=== PATIENT | male | born 1970 | race Caucasian/White ===

== ENCOUNTER 2022-11-13 14:30 | Emergency (ER) | payer OTHER, SELFPAY ==
--- NOTE | 2022-11-13 14:37 | ED.SKABFB ---
HPI - Skin/Abscess/Foreign Bdy General Chief complaint: Skin/Abscess/Foreign Body Stated complaint: Rash Time Seen by Provider: 11/13/22 14:33 Source: patient Mode of arrival: ambulatory Limitations: no limitations History of Present Illness HPI narrative: is a 52-year-old male patient presenting to the clinic today with complaints of a rash times 2-3 weeks. He reports he has tried [id number] hydrocortisone, cortisone 10, calamine lotion. States that the rash gets better with the cortisone cream however it comes back. He works an [employer] Related Data Allergies Allergy/AdvReac Type Severity Reaction Status Date / Time NFA Allergy Unknown Uncoded 08/09/02 08:24 Review of Systems Review of Systems: Pertinent positives per HPI. Patient denies any fever, chills, rash, headache, visual changes, dizziness, cough, runny nose, sore throat, shortness of breath, chest pain, palpitations, nausea, vomiting, diarrhea, constipation, abdominal pain, or any urinary issues. PMFSH Comments At the time of my signature, I reviewed and agree with the nursing past medical, surgical, social, and family history. There is no relevant family history pertinent to the patient complaint. Exam Narrative: General: Well-developed, well nourished, in no apparent distress Head: Normocephalic, atraumatic. Cardio: Regular rate and rhythm, s1 and s2 normal, no murmur appreciated. Resp: Clear to auscultation bilaterally, no rhonchi, rales, wheezing or rubs. Integumentary: [place], warm, and dry, intact without lesion, red, raised, itchy, blistery appearing rash to bilateral forearms Course Course Emergency Course: Portions of this record may have been created with voice recognition software. Level of Care: Express Care Visit Vital Signs Vital signs: Vital signs reviewed MDM - Skin/Abscess/Foreign Bdy MDM Narrative Medical decision making narrative: At the time of visit patient is resting comfortably on the exam table. I suspect patient has a topic dermatitis to the bilateral forearms. Will send in prescription for Medrol Dosepak and some triamcinolone cream. Supportive measures were discussed with the patient and he voiced understanding discharge instructions agrees to treatment plan. Differential Diagnosis Differential diagnosis: Likely abscess of skin or subcutaneous tissue, urticaria, cellulitis, eczema, insect bites and contact dermatitis Discharge Plan Discharge Clinical Impression: Dermatitis Patient Disposition: Home, Self-Care Condition: Stable Instructions: Antibiotic Form, Dermatitis (ED) Additional Instructions: Apply triamcinolone cream as directed Take Medrol Dosepak as directed Avoid hot showers May apply calamine lotion to rash Avoid scratching and this causes rash to spread May take benadryl 25-50mg every 6 hours as needed for itching. Follow up with your PCP in 3-5 days if symptoms persist or sooner if they worsen Go to the Emergency Room if symptoms worsen- fever, rash spreading with treatment, shortness of breath, tongue swelling, drooling, or chest pain Prescriptions: New triamcinolone acetonide 0.1 % cream 1 applic topical BID 7 Days Qty: 30 0RF methylprednisolone [Medrol (Mumtaz)] 4 mg tablets,dose pack See Rx Instructions .ROUTE .COMPLEX Qty: 21 0RF Rx Instructions: orally per package directions Follow-up/Referrals: PHYSICIAN NOT ON STAFF,NONSTAFF [Primary Care Provider] - Time of Disposition: 14:47 Quality NIHSS Nursing Documentation ED NIHSS nursing documentation: reviewed/agree
[2022-11-13 14:41] VITALS: BP 136/85; PULSE 79; RESP 18; TEMP 36.8; O2SAT 100
== END 2022-11-13 14:51 | disposition home or self-care (01) ==
PROVIDERS: Emergency Provider Nurse Practitioner Family
DX: L30.9 Dermatitis, unspecified (principal)
CPT/HCPCS: 99213; G0463

== ENCOUNTER 2023-01-16 14:36 | Outpatient (CLI) | payer OTHER, SELFPAY ==
[2023-01-16 15:03] LABS: Basophils Absolute Auto 0.1 K/mm3 (0.0-0.1); Basophils Percent Auto 0.6 % (0.2-1.2); Eosinophils Absolute Auto 0.1 K/mm3 (0-0.3); Eosinophils Percent Auto 0.6 % (0-4.4); Hematocrit 45.9 % (42.0-52.0); Hemoglobin 15.5 g/dL (14.0-18.0); Immature Granulocyte Absolute 0.04 K/mm3 (0.00-0.031); Immature Granulocyte Percent A 0.4 % (0-0.5); Lymphocytes Percent Auto 12.4 % (18.3-44.2); Mean Corpuscular HGB Conc 33.8 g/dl (32-36); Mean Corpuscular Hemoglobin 31.3 pg (26-34); Mean Corpuscular Volume 92.5 fl (80-100); Mean Platelet Volume 9.6 fl (7.4-10.4); Monocytes Absolute Auto 0.7 K/mm3 (0.1-0.6); Monocytes Percent Auto 6.5 % (2.6-8.5); Neutrophils Percent Auto 79.5 % (45.5-73.1); Platelet Count Result 371 k/mm3 (150-375); Red Blood Count 4.96 M/mm3 (4.6-6.20); Red Cell Distribution Width 14.2 % (11.5-14.5); White Blood Count 11.3 K/mm3 (4.5-10.0)
[2023-01-16 15:18] LABS: Alanine Aminotransferase 37 U/L (6-50); Albumin Level 4.6 g/dL (3.5-5.1); Alkaline Phosphatase 75 U/L (38-126); Anion Gap 9 mmol/L (8-16); Aspartate Amino Transferase 34 U/L (17-59); Bilirubin,Total 0.6 mg/dL (0.2-1.3); Blood Urea Nitrogen 16 mg/dL (9-20); Calcium 9.1 mg/dL (8.4-10.2); Carbon Dioxide 27 mmol/L (22-30); Chloride 103 mmol/L (98-107); Cholesterol 196 mg/dL (0-200); Estimated Glomerular Filt Rate > 60; Glucose 99 mg/dL (65-110); HDL Direct 51 mg/dL; Potassium 4.3 mmol/L (3.4-5.0); Sodium 139 mmol/L (137-145); Triglycerides 82 mg/dL (<150)
[2023-01-16 15:29] LABS: LDL Cholesterol Direct 120 mg/dL
== END 2023-01-16 14:37 | disposition home or self-care (01) ==
LOC: ANHLAB 14:39
PROVIDERS: PCP Family Medicine; Visit Provider Family Medicine
DX: Z00.00 Encounter for general adult medical examination without abnormal findings (principal)
CPT/HCPCS: 36415; 80053; 80061; 85025

== ENCOUNTER 2024-10-07 18:33 | Emergency (ER) | payer OTHER, SELFPAY ==
--- NOTE | ~2024-10-07 | XR_ITS ---
XR finger 3rd RT min 2V 10/07/2024 19:59 Indication: Finger laceration Procedure: 3 views right third finger Comparison: No prior studies for comparison. 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 No acute fracture or traumatic malalignment. Mild soft tissue swelling with soft tissue laceration ventral to the distal phalanx. No foreign body. Impression: 1: No acute bone or joint abnormality. Reviewed, dictated and finalized at location O. Impression: 1: No acute bone or joint abnormality.
[2024-10-07 18:48] VITALS: BP 143/95; PULSE 100; RESP 19; TEMP 36.6; O2SAT 100
--- NOTE | 2024-10-07 19:42 | ED.WOUNDLAC ---
HPI - Wound/Laceration General Chief Complaint: Wound/Laceration Stated Complaint: wound Time Seen by Provider: 10/07/24 19:20 History of Present Illness HPI narrative: 53-year-old male presents to the emergency department for laceration to his right 3rd finger that occurred prior to arrival. 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 States he was loading a metal cart onto his truck when the cart pinched his right 3rd finger causing a laceration. Patient is reporting laceration to the palmar aspect of his right 3rd distal phalanx. Last Tdap is unknown. Bleeding is controlled. Denies difficulty with range of motion. Related Data Allergies Allergy/AdvReac Type Severity Reaction Status Date / Time No Known Allergies Allergy Verified 10/07/24 18:33 Review of Systems Review of Systems: All systems reviewed & are unremarkable except as noted in HPI and below PMFSH Family History Family History Father Lung cancer metastatic to brain Social History Social History Social History: Single Smoking packs per day: 0 Smoking cigarettes per day: 0.0 Years smoked: 30 Smoking pack-years: 0.00 Smoking status: Current every day smoker Tobacco type: cigarettes Second hand tobacco smoke exposure: No Alcohol intake: never Substance use: never Substance use type: does not use Lack of Transportation: No Lack of Food: Never True Current Housing: I Have Housing Concerned About Future Housing: No Difficulty Paying Gas/Electric Bills: No Difficulty Paying for Meds: No Currently Unemployed: No Education: Don't Know Difficulty w/ Childcare or Family Care: No Living arrangements: with family Additional living arrangements comments: Pt son and mom lives with him. 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 HEAD: Normocephalic, atraumatic. EYES: EOMI. ENT: Nares clear, no rhinorrhea or epistaxis. Mucous membranes moist. NECK: Supple. CHEST: Clear to auscultation. No respiratory distress. HEART: Regular rate and rhythm. No murmur heard. Normal peripheral pulses. EXTREMITIES: Normal range of motion. No edema. SKIN: 4 cm U shaped laceration on the palmar aspect of the right 3rd distal phalanx. Bleeding controlled. No deep structures or foreign bodies visualized. Patient has full flexion and extension of the digit. No nail involvement. Cap refill less than 2. Sensation intact. Fingers with dirt on them NEURO: No focal deficits. Alert and oriented x3 Course Vital Signs Vital signs: Vital Signs Temperature 97.8 F 10/07/24 18:48 Pulse Rate 100 10/07/24 18:48 Respiratory Rate 19 10/07/24 18:48 Blood Pressure 143/95 H 10/07/24 18:48 Pulse Oximetry 100 10/07/24 18:48 Oxygen Delivery Room Air 10/07/24 18:48 Temperature 97.8 F 10/07/24 18:48 Pulse Rate 100 10/07/24 18:48 Respiratory Rate 19 10/07/24 18:48 Blood Pressure 143/95 H 10/07/24 18:48 Pulse Oximetry 100 10/07/24 18:48 Oxygen Delivery Room Air 10/07/24 18:48 Procedures Laceration Laceration 1: Date: 10/07/24 Time: 20:57 Site: upper extremity Side (If applicable): right Size (cm): 4 Description: irregular Depth: simple, single layer Local Anesthetic: lidocaine 1% Amount of anesthesia used (mL): 3 Pre-repair: wound explored, irrigated and irrigated extensively ====== Skin Level ====== Skin layer closed with: nylon Size (cm): 5-0 Number of sutures: 8 Technique: simple, interrupted ====== Subcutaneous Layer ====== ====== Muscle Layer ====== ====== Tendon Layer ====== MDM - Wound/Laceration MDM Narrative Medical decision making narrative: 53-year-old male presents to the emergency department for laceration to his right 3rd digit that occurred prior to arrival. See HPI for further history. Vitals with elevated blood pressure, otherwise unremarkable. Patient is afebrile and nontoxic appearing. Exam is significant for the above. X-ray the finger shows no acute osseous findings. Laceration irrigated extensively with normal saline and closed with 8 sutures as noted above without complications. Tdap updated in the ED. Given patient works for maintenance and his hands were dirty, will start him on antibiotics. Discussed wound care, suture removal in 7 days and strict ED return precautions. Patient is agreeable with the plan verbalized understanding. Discharged in stable condition. Discharge Plan Discharge Clinical Impression: Laceration Patient Disposition: Home Condition: Stable Instructions: Antibiotic Form, Care For Your Stitches (ED), Laceration (ED) Additional Instructions: You had 8 stitches placed today. Please have these removed in 7 days by your primary care, emergency department or urgent care. Please keep your wound clean and dry. Keep it covered while working. Change her bandage twice daily or sooner if saturated. Take antibiotics as directed. Return to the emergency department if you develop surrounding redness, drainage, fever or other concerning symptoms. Patient Language: Lithuanian Prescriptions: New cephalexin 500 mg capsule 500 mg PO Q8H 5 Days Qty: 15 0RF No Action methylprednisolone [Medrol (Mumtaz)] 4 mg tablets,dose pack See Rx Instructions PO PER PKG DIR Qty: 21 0RF Rx Instructions: PO PER PKG DIR triamcinolone acetonide 0.1 % cream 1 applic topical BID Qty: 80 0RF Follow-up/Referrals: Howard Maharaj MD [Primary Care Provider, Family Practice]
[2024-10-07] MEDS: TETANUS,DIPHTHERIA,AC PERTUSSIS ADULT (0.5 ML) BOOSTRIX IM (19:49)
[2024-10-07] MEDS: LIDOCAINE 1% LOCAL INJ 10 ML VIAL INFILTRATE (20:31)
--- NOTE | 2024-10-07 20:31 | PC.NURSE ---
PA at bedside for lac repair
[2024-10-07] MEDS: CEPHALEXIN 500 MG CAPSULE PO (21:18)
[2024-10-07 21:21] VITALS: RESP 18
== END 2024-10-07 21:27 | disposition home or self-care (01) ==
PROVIDERS: Emergency Provider Physician Assistant; PCP Family Medicine
DX: S61.212A Laceration without foreign body of right middle finger without damage to nail, initial encounter (principal); Z23 Encounter for immunization; W23.0XXA Caught, crushed, jammed, or pinched between moving objects, initial encounter
CPT/HCPCS: 12002; 73140; 90471; 90715; 99283; A9270; J2003

== ENCOUNTER 2024-10-17 20:37 | Emergency (ER) | payer OTHER, SELFPAY ==
--- OUTSIDE RECORDS SUMMARY | 2009-04-03 07:45 | XMS_ITS | Continuity of Care Document ---
Author Organization [facility] Address [address] [place] [address] utive [facility] [address] [place] [address] Phone Care Team Providers Care Software Development Coordinator Name Role Phone Elli Hooper Unavailable Unavailable Procedures Procedure Date Office/outpatient Visit, Est Remove Foreign Body From Eye Remove Foreign Body From Eye Advance Directives Directive Yes / No Effective Date File Name No Information Encounters Encounter Description Practice Location Reason(s) For Visit Diagnoses Date Provider Providers Copied on Encounter Office/outpat ient Visit, Est [facility], [id number] [place] [address] [address], [place], [place], [id number], tel:[phone] [facility] No Information 6-201 0 Sandie Calloway. [facility] [place] , [address], [place], [place], [facility], [place]. tel:[phone] [facility], [address] [place] [address] [address], [place], [place], [id number], tel:[phone] [facility] No Information 0-201 0 Randhawa OD Mansoor. [address] , [address], [place], [place], [facility], [place]. tel:[phone] [facility], [address] [place] [address] [address], [place], [place], [id number], tel:[phone] [facility] No Information 7-200 9 Krishnasamy Soto. [facility] [address], [place], [address], [place]. tel:[phone] Referring Provider: Soto penn, [address], [address]. tel:[phone] Family History Family Member Type Diagnosis Age At Onset No Information Payers Payer name Insurance type Covered libertarian ID Authorhalima vincent(s) [employer] [id number] Social History Type Description Quantity Date Captured Comments Sex Male Smoking Status No Information Chief Complaint And Reason For Visit No Information Reason For Referral Reason For Referral No Information History Of Present Illness Encounter Date Complaint History Of Prese nt Illness No Information Functional Status Date Functional Assessmen t No Information Instructions Date Instruction Additional Infor mation No Information Assessments Type Assessment Date No Information Patient Care Teams Name Effective Dates (start - stop) Status Members No Information
--- OUTSIDE RECORDS SUMMARY | 2024-10-17 20:38 | XMS_ITS | Clinical Summary ---
Author Organization [facility] Address [address], [address] [address] Phone Care Team Providers Care Medical Engineer Name Role Phone Melani Gustafson MD Unavailable [phone] Storm Burleson MD Primary Care Provider [phone] Allergies Active Allergy Reactions Criticality Noted Date Comments Poison Aleena Extract Rash,Itching 05/16/2015 Medications ibuprofen (MOTRIN) 200 MG Tablet Take 200 mg by mouth every 8 hours as needed. Active Active Problems Problem Noted Date Diagnosed Date Left inguinal hernia 05/07/2015 Current smoker 05/07/2015 Family History Medical History Relation Name Comments Heart Attack Father Lung Cancer Father Breast Cancer Mother Relation Name Status Comments Father Mother Alive Social History Tobacco Use Types Packs/Day Years Used Date Smoking Tobacco: Every Day Cigarettes 1 30 Smokeless Tobacco: Never Tobacco Cessation:Ready to Q uit: No Alcohol Use Standard Drinks/Week Comments No 0 (1 standard drink = 0.6 oz pur e alcohol) Sex and Gender Information Value Date Recorded Sex Assigned at Not on file Legal Sex Male 9:31 AM CDT Gender Identity Not on file Sexual Orientation Not on file Last Filed Vital Signs Vital Sign Reading Time Taken Comments Blood Pressure 142/98 07/02/2015 10:10 AM CDT Pulse 78 07/02/2015 10:10 AM CDT Temperature 36.5 C (97.7 F) 07/02/2015 10:10 AM CDT Respiratory Rate 16 07/02/2015 10:10 AM CDT Oxygen Saturation 97% 05/23/2015 12:15 PM CDT Inhaled Oxygen Concentration - - Weight 58.8 kg (129 lb 9.6 oz) 07/02/2015 10:10 AM CDT Height 165.1 cm (5' 5) 07/02/2015 10:10 AM CDT Body Mass Index 21.57 07/02/2015 10:10 AM CDT Plan of Treatment Health Maintenance Due Date Last Done Comments Hepatitis C Virus (HCV) Screening 1968 TdaP Immunization 1968 Hepatitis B Immunization (1 of 3 - 19+ 3-dose series) 10/20/1987 Cologuard 2013 Colonoscopy 2013 Colorectal Cancer Screening 2013 Immunochemical Fecal Occult Blood 2013 Pneumococcal Immunization (5 0+ years) (1 of 1 - PCV) 2018 Zoster Immunization (1 of 2) 2018 SARS-COV-2 Immunization (1 - 2023-) 10/18/2023 Influenza Immunization (#1) 2024 Respiratory Syncytial Virus (RSV) Immunization (Adult) (1 - 1-dose 75+ series) 10/20/2043 Human Papillomavirus (HPV) Immunization Aged Out No longer eligible b ased on patient's age to complete this topic Meningococcal Immunization (ACWY) Aged Out No longer eligible based on patient's age to complete this topic Rotavirus Immunization Aged Out No lo nger eligible based on patient's age to complete this topic Medical Devices Implanted Type Area Medical Sales Specialist Device Identifier Shelf Expiration Date Model / Serial / Lot Mesh Left Large 3dmax Light - [id number] Implanted:Qty : 1 on 05/23/2015 by Melani Gustafson MD at [facility] IMPLANT Left: Groin CR BARD / DAVOL 12/14/2019 [id number] / / [id number] Insurance [facility] Care Teams Medical Engineer Relationship Specialty Start Date End Date Storm Burleson MD [address] [place] [id number] PCP - General Family Medicine 05/07/15 Melani Gustafson MD General Surgery 05/02/15
--- OUTSIDE RECORDS SUMMARY | 2024-10-17 20:38 | XMS_ITS | Clinical Summary ---
Author Organization [facility] Address [address] [place] [address] Care Team Providers Care Physical Science Technician Name Role Phone Unavailable Primary Care Provider Unavailabl e Social History Tobacco Use Types Packs/Day Years Used Date Smoking Tobacco: Never Assessed Comments Unknown Sex and Gender Information Value Date Recorded Sex Assigned at Not on file Legal Sex Female 11:26 AM SCRAP PREPARER Gender Identity Not on file Sexual Orientation Not on file Last Filed Vital Signs Vital Sign Reading Time Taken Comments Blood Pressure 135/88 01/05/2023 11:32 AM SCRAP PREPARER Pulse 78 01/05/2023 11:32 AM SCRAP PREPARER Temperature 37 C (98.6 F) 01/05/2023 11:32 AM SCRAP PREPARER Respiratory Rate 18 01/05/2023 11:32 AM SCRAP PREPARER Oxygen Saturation 100% 01/05/2023 11:32 AM SCRAP PREPARER Inhaled Oxygen Concentration - - Weight 53.3 kg (117 lb 8.1 oz) 01/05/2023 11:32 AM SCRAP PREPARER Height 165.1 cm (5' 5) 01/05/2023 11:32 AM SCRAP PREPARER Body Mass Index 19.55 01/05/2023 11:32 AM SCRAP PREPARER Plan of Treatment Health Maintenance Due Date Last Done Comments Cervical Cancer Screening Pa p Smear (Age 30 to 64) Every 3 Years 1968 Colorectal Cancer Screening Colonoscopy (10 Years) 1968 Annual Physical 10/20/1971 Hepatitis C 1986 DTaP, Tdap and Td Vaccines ( 1 - Tdap) 10/20/1987 Hepatitis B Vaccines (1 of 3 - 19+ 3-dose series) 10/20/1987 Cervical Cancer Screening Pa p with HPV Testing (Age 30 to 64) Every 5 Years 1998 Cervical Cancer Screening with HPV 1998 Mammogram Screening 2008 Pneumococcal Vaccine: 50+ Ye ars (1 of 1 - PCV) 2018 Zoster Vaccines (1 of 2) 2018 COVID-19 Vaccine (2023-2 5 season) 2023 Meningococcal B Vaccine Aged Out No l onger eligible based on patient's age to complete this topic Meningococcal Vaccine Aged Out No hi tyra eligible based on patient's age to complete this topic RSV Immunizations Under 20 Months Aged Out No longer eligible based on patient's age to complete this topic
[2024-10-17 20:44] VITALS: BP 154/101; PULSE 77; RESP 18; TEMP 36.3; O2SAT 96
--- NOTE | 2024-10-17 20:55 | ED.GENADULT ---
HPI - General Adult General Chief complaint: Wound/Laceration Stated complaint: suture removal Time Seen by Provider: 10/17/24 20:45 History of Present Illness HPI narrative: Patient is a 53-year-old gentleman presents emergency department chief complaint of wound check. Patient reports he had a laceration to his right middle finger on the 22nd had sutures placed and reports that he came for wound check to see if it was time the sutures to be removed. Patient states that he feels there is an area of still feels weak and feels that he may need some further time with sutures in place Related Data Allergies Allergy/AdvReac Type Severity Reaction Status Date / Time No Known Allergies Allergy Verified 10/07/24 18:33 Review of Systems Review of Systems: A 10 system review of systems was completed on the patient and is negative except for what is stated in the HPI. Nursing and ancillary documentation was reviewed. [facility] Family History Family History Father Lung cancer metastatic to brain Social History Social History Social History: Single Smoking packs per day: 0 Smoking cigarettes per day: 0.0 Years smoked: 30 Smoking pack-years: 0.00 Smoking status: Current every day smoker Tobacco type: cigarettes Second hand tobacco smoke exposure: No Alcohol intake: never Substance use: never Substance use type: does not use Lack of Transportation: No Lack of Food: Never True Current Housing: I Have Housing Concerned About Future Housing: No Difficulty Paying Gas/Electric Bills: No Difficulty Paying for Meds: No Currently Unemployed: No Education: Don't Know Difficulty w/ Childcare or Family Care: No Living arrangements: with family Additional living arrangements comments: Pt son and mom lives with him. 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 HEAD: Normocephalic, atraumatic. EYES: PERRLA and EOMI. ENT: Nares clear, no rhinorrhea or epistaxis. Mucous membranes moist. NECK: Supple. CHEST: Clear to auscultation. No respiratory distress. HEART: Regular rate and rhythm. No murmur heard. Normal peripheral pulses. ABDOMEN: Soft, nontender, nondistended, normal active bowel sounds. EXTREMITIES: Normal range of motion. No edema. SKIN: Warm, dry, no rash. There is a sutured wound present on the right middle finger well approximated no erythema no purulent drainage there to not be complete wound healing on the laceration yet NEURO: No focal deficits. Alert and oriented x3. PSYCH: Normal mood and affect. Course Vital Signs Vital signs: Vital Signs Temperature 36.3 C L 10/17/24 20:44 Pulse Rate 77 10/17/24 20:44 Respiratory Rate 18 10/17/24 20:44 Blood Pressure 154/101 H 10/17/24 20:44 Pulse Oximetry 96 10/17/24 20:44 Oxygen Delivery Room Air 10/17/24 20:44 Temperature 36.3 C L 10/17/24 20:44 Pulse Rate 77 10/17/24 20:44 Respiratory Rate 18 10/17/24 20:44 Blood Pressure 154/101 H 10/17/24 20:44 Pulse Oximetry 96 10/17/24 20:44 Oxygen Delivery Room Air 10/17/24 20:44 Medical Decision Making MDM Narrative Medical decision making narrative: Wound shows no signs of infection but the wound is not completely healed and given this is a high utilization area the body and is exposed to additional stress was discussed with the patient and the decision was made to maintain the sutures for another 2-3 days and have the wound recheck the patient expressed understanding this and will return to the emergency department primary care or urgent care for recheck in 2-3 days Vital Signs Vital Signs: Vital Signs Temperature 36.3 C L 10/17/24 20:44 Pulse Rate 77 10/17/24 20:44 Respiratory Rate 18 10/17/24 20:44 Blood Pressure 154/101 H 10/17/24 20:44 Pulse Oximetry 96 10/17/24 20:44 Oxygen Delivery Room Air 10/17/24 20:44 Temperature 36.3 C L 10/17/24 20:44 Pulse Rate 77 10/17/24 20:44 Respiratory Rate 18 10/17/24 20:44 Blood Pressure 154/101 H 10/17/24 20:44 Pulse Oximetry 96 10/17/24 20:44 Oxygen Delivery Room Air 10/17/24 20:44 Discharge Plan Discharge Clinical Impression: Visit for wound check Patient Disposition: Home Condition: Stable Instructions: Antibiotic Form, Care For Your Stitches (ED) Additional Instructions: Please keep the area clean is recommended follow-up in 2-3 days for another wound check as the sutures do not appear to be ready to be removed Patient Language: Czech Prescriptions: No Action methylprednisolone [Medrol (Mumtaz)] 4 mg tablets,dose pack See Rx Instructions PO PER PKG DIR Qty: 21 0RF Rx Instructions: PO PER PKG DIR triamcinolone acetonide 0.1 % cream 1 applic topical BID Qty: 80 0RF cephalexin 500 mg capsule 500 mg PO Q8H 5 Days Qty: 15 0RF Follow-up/Referrals: Howard Maharaj MD [Primary Care Provider, Family Practice] Time of Disposition: 20:58
== END 2024-10-17 21:08 | disposition home or self-care (01) ==
PROVIDERS: Emergency Provider Emergency Medicine; PCP Family Medicine
DX: S61.212D Laceration without foreign body of right middle finger without damage to nail, subsequent encounter (principal); X58.XXXD Exposure to other specified factors, subsequent encounter
CPT/HCPCS: 99281